=== PATIENT | female | born 1980 ===

== ENCOUNTER 2020-02-06 09:17 | Emergency (ER) | payer OTHER ==
[~2020-02-06] VITALS: Ht 162.6 cm; Wt 72.6 kg
== END 2020-02-06 21:46 | disposition home or self-care (01) ==
LOC: ER 09:17
DX: U07.1 COVID-19 (principal)

== ENCOUNTER 2020-05-09 10:46 | Inpatient (IN) | payer OTHER ==
[~2020-05-09] VITALS: Ht 165.1 cm; Wt 68.0 kg
[2020-05-09] MEDS ORDERED: PANTOPRAZOLE SO40 MG PO (11:25)
--- NOTE | 2020-05-09 11:26 | NUR ---
SE RECIBE APCIENTE ALERTA, ORIENTADA X 3 ESFERAS REFIERE TENER DOLOR ABDOMINAL CUADRANTE SUPERIOR DERECHO QUE SE IRRADIA A ESPALDA, PTE.HX.PROBLEMAS EN VESICULA SE UBICA EN AREA DE OBSERVACION.
--- NOTE | 2020-05-09 13:03 | NUR ---
PACIENTE ALERTA Y ORIENTADA EN INNA SURINDER ESFERAS, ES ORIENTADA SOBRE ORDENES MEDICAS, REFIERE ENTENDER. SE COLECTAN MUESTRAS DE ANNA, SE CANALIZA VENA Y SE ADMINISTRAN MEDICAMENTOS. PACIENTE REFIERE ULTIMA COMIDA FUE A LAS 8:00 AM.
--- NOTE | 2020-05-09 16:15 | NUR ---
SE RECIBE PTE DLE TURNO ANTERIOR, ALERTA Y ORIENTADA X 3 ESFERAS, EN MARCELA NIEVL MAS BAJO, BRICENO DE IDENTIFICACION Y BARANDAS ELEVADAS POR PRECAUCION, EN COMPANIA DE FAMILIAR. SE OBSERVA CON BUEN PATRON RESPIRATORIO Y PIEL TIBIA AL TACTO. IV PATENTE Y BERNIE DE EDEMA O ERITEMA CON 0.9% NSS @150ML/HR. PENDIENTE A CONSULTA CON DR Shaniqua SOLORZANO Y DR STACK. SE MANTIENE BAJO OBSERVACION.
[2020-05-12] MEDS ORDERED: OMEPRAZOLE20 MG PO (13:49)
[2020-05-12] MEDS ORDERED: PERCOCET 5-3251 EACH PO (13:49)
== END 2020-05-12 14:38 | disposition home or self-care (01) | DRG 417 ==
LOC: ER 10:46 → MEDI 18:07 → SEC-K 18:07 → MEDI 19:20
PROVIDERS: Surgery; ADMIT Internal Medicine; ATTEND Internal Medicine
PROC: BW40ZZZ Ultrasonography of Abdomen (ICD-10-PCS; 2020-05-09)
PROC: 0FT44ZZ Resection of Gallbladder, Percutaneous Endoscopic Approach (ICD-10-PCS; principal; 2020-05-10 08:00)
DX: K80.12 Calculus of gallbladder with acute and chronic cholecystitis without obstruction (principal); U07.1 COVID-19; N20.0 Calculus of kidney